=== PATIENT | female | born 1990 | race Caucasian/White ===

== ENCOUNTER → 2019-09-29 | Outpatient (CLI) | payer BC ==
[~2019-09-29] MED LIST: COMPAZINE10 MG; DEPAKOTE ER500 MG; IMITREX100 MG; LOTEMAX3.5 GM OP; LOTEMAX5 ML OPHTHALMIC; LOTENSIN20 MG; TRAZODONE HCL100 MG
== END ==
LOC: RAD 01:22
DX: N60.02 Solitary cyst of left breast (principal); N60.01 Solitary cyst of right breast